=== PATIENT | male | born 1990 | race Caucasian/White ===

== ENCOUNTER 2017-02-06 09:22 | Emergency (ER) | payer BC ==
[2017-02-06 09:41] VITALS: BP 136/98; PULSE 74; TEMP 98.6; O2SAT 96
[2017-02-06 09:51] VITALS: RESP 74
--- NOTE | 2017-02-06 10:13 | CPEKG ---
Heart Rate: 59 RR Interval: 1017 P-R Interval: 148 QRSD Interval: 102 QT Interval: 408 QTC Interval: 405 P [place]: 11 QRS [place]: 21 T Wave [place]: 5 EKG Severity - NORMAL ECG - EKG Impression: SINUS RHYTHM EKG Impression: Agree with above. No significant change from March 10, 2015 Electronically Signed By: Octavio Dumas 07-Feb-2017 14:55:09
--- NOTE | 2017-02-06 10:30 | UCPHY ---
H & P Time Seen by Provider: 02/06/17 09:40 Patient Type: Established HPI/ROS: 27-year-old male presents complaining of sore throat for several days, also left upper chest pain for approximately 1 week. He quit smoking about 1 week ago. He does have a daily cough but does not considered unusual at this point. No nausea vomiting diarrhea, no shortness of breath. Review of systems As per HPI General no fever no chills no weakness HEENT no eye pain no eye discharge. No eye redness, positive sore throat Respiratory positive cough, no shortness of breath Cardiac positive chest pain, no peripheral edema GI no abdominal pain, no diarrhea, no constipation, no nausea, no vomiting no flank pain, no hematuria, no dysuria Musculoskeletal no myalgias, no joint pain Heme no easy bruising, no easy bleeding Endo no polyuria, no polydipsia Skin no rashes, no pruritus Neuro no syncope, no dizziness, no headaches Psych is no suicidal ideation, no homicidal ideation Past Medical/Surgical History: Hypertension Social History: Alcohol socially, denies drug use Smoking Status: Former smoker Physical Exam: 27-year-old male HEENT atraumatic normocephalic, extraocular muscles intact, anicteric Oropharynx negative for erythema negative exudate, tolerating her own secretions Neck supple no meningismus Lungs clear to auscultation bilaterally Chest mild tenderness to palpation left upper parasternal area, no crepitus no rash no ecchymosis Heart regular rate and rhythm without murmur rub or gallop Abdomen nondistended normoactive bowel sounds soft nontender Back no CVA tenderness, no step-offs, no spinal tenderness Extremities no cyanosis clubbing or edema Neuro alert and oriented, no focal deficits Constitutional: Initial Vital Signs Temperature (C) 37.0 C 02/06/17 09:38 Heart Rate 74 02/06/17 09:38 Respiratory Rate 18 02/06/17 09:38 Blood Pressure 136/98 H 02/06/17 09:38 O2 Sat (%) 96 02/06/17 09:38 O2 Delivery Mode Room Air Allergies/Adverse Reactions: No Known Allergies Allergy (Unverified 03/10/15 12:31) Home Medications: Medication Instructions Recorded AZITHROMYCIN [Z-PACK] 250 mg PO DAILY #6 tab 02/06/17 Lisinopril 02/06/17 Medical Decision Making - Diagnostics EKG Interpretation: EKG normal sinus rhythm Imaging: Chest x-ray negative for pneumonia consistent with bronchitis ED Course/Re-evaluation: Patient seen and evaluated for cough cold symptoms left upper chest pain worse with cough. EKG normal sinus rhythm Chest x-ray negative for pneumonia Rapid strep negative Physical exam consistent with bronchitis costochondritis Impression Bronchitis Costochondritis Plan [facility]-Call[facility] [id number] medicines for cough and cold Follow up with primary care physician Departure - Departure Disposition: Home, Routine, Self-Care Clinical Impression: Pharyngitis, Costochondritis, Bronchitis Condition: Good Instructions: Pharyngitis (ED), Costochondritis (ED), Acute Bronchitis (ED) Referrals: Prasanna Naylor MD [Primary Care Provider] - As per Instructions Prescriptions: AZITHROMYCIN [Z-PACK] 250 mg PO DAILY #6 tab - PQRS PQRS Measurement: Not applicable
== END 2017-02-06 10:50 | disposition home or self-care (01) ==
LOC: CED 09:22
DX: J02.9 Acute pharyngitis, unspecified (principal); J40 Bronchitis, not specified as acute or chronic; M94.0 Chondrocostal junction syndrome [Tietze]; I10 Essential (primary) hypertension; Z87.891 Personal history of nicotine dependence
CPT/HCPCS: 71020-PO; 87880-PO; 93010-PO; 99214-PO; G0463-PO